=== PATIENT | female | born 1940 | race Caucasian/White ===

== ENCOUNTER 2024-03-08 13:17 | Outpatient (CLI) | payer MEDICARE, BC, SELFPAY | END 2024-03-08 13:18 | disposition home or self-care (01) | LOC: NFLDREF 13:18 | PROVIDERS: Visit Provider Obstetrics & Gynecology | DX: N39.0 Urinary tract infection, site not specified (principal); R30.0 Dysuria | CPT/HCPCS: 87086; 87186 ==